=== PATIENT | female | born 1950 | race Caucasian/White ===

== ENCOUNTER 2018-02-26 14:53 | Emergency (ER) | payer MEDICARE ==
--- NOTE | 2018-02-26 16:48 | XRAY Report ---
Reason: midfoot pain Procedure Date: 02/26/2018 Accession Number: [id number] / [id number] Procedure: XR - Foot 3 View LT CPT Code: FULL RESULT: EXAM: LEFT FOOT RADIOGRAPHY EXAM DATE: 02/26/2018 03:48 PM. CLINICAL HISTORY: Midfoot pain. COMPARISON: None. TECHNIQUE: 3 views. FINDINGS: Bones: Lucency is noted in the distal dorsal talus best seen on the lateral view. On the oblique and AP images, there is a lucency through the distal lateral aspect of the calcaneus. No fracture involving the Lisfranc joint. Joints: Normal. No subluxations. Soft Tissues: Mild lateral left foot and ankle swelling. IMPRESSION: 1. Possible, mildly displaced fracture of the distal lateral calcaneus. 2. Question of lucency in the distal dorsal talus best seen on the lateral view. Confirmation with CT can be performed as necessary. 3. No definite Lisfranc fracture. No malalignment. 3. Mild lateral left foot and ankle swelling. RADIA
--- NOTE | 2018-02-26 17:19 | ED Physician Documentation ---
History of Present Illness - Stated complaint Stated Complaint: L FOOT INJ - Chief complaint Chief Complaint: Ext Problem - Additonal information Additional information: hx from pt slipped on boat deck foot twisted under her cannot bear weight no other injury Review of Systems Musculoskeletal: reports: Pain with weight bearing PD PAST MEDICAL HISTORY - Present Medications Home Medications: Ambulatory Orders Medication Instructions Recorded Confirmed Atenolol 1 02/26/18 Escitalopram [Lexapro] 1 02/26/18 Losartan [Cozaar] 1 02/26/18 clonazePAM [Clonazepam] 1 02/26/18 - Allergies Allergies/Adverse Reactions: Allergies Allergy/AdvReac Type Severity Reaction Status Date / Time No Known Drug Allergies Allergy Verified 02/26/18 15:05 PD ED PE NORMAL - Vitals Vital signs reviewed: Yes - General General: Alert and oriented X 3 - Extremities Extremities: Other (L foot: no ankle or hund foot pain, pain to mid foot neard base 1st and 2nd MT, MSV intact, STS) Results - Vitals Vitals: Vital Signs - 24 hr 02/26/18 02/26/18 15:03 17:57 Temperature 36 C L 36.1 C L Heart Rate 73 66 Respiratory 20 15 Rate Blood Pressure 184/88 H 153/71 H O2 Saturation 100 99 Oxygen O2 Source Room air - Rads (name of study) L foot Radiology: See rad report (no lisfranc, possible fx distal lateral calcaneus, possible lucency distal dorsal talus, STS) Procedures - Splint (location) LLE Splint applied by: Tech Type of splint: Fiberglass, Short leg, Posterior, Stirrup Other: Patient tolerated well, No complications, Neurovascular intact, Crutches provided Departure - Departure Disposition: Home, Self Care Clinical Impression: Foot fracture, left Qualifiers: Encounter type: initial encounter Fracture type: closed Qualified Code(s): S92.902A - Unspecified fracture of left foot, initial encounter for closed fracture Condition: Good Instructions: ED Crutch Walking, ED Fx Foot, ED Splint Care Fiberglass Follow-Up: Prashanth Berkowitz MD [Primary Care Provider] - [facility] [Provider Group] Comments: There a fracture of the calcaneus and talus bones. You will need to follwo up with orthopedics. You may need further imaging such as CT or MRI. In the meantime, wear the splitn at all times, use the crutches (no weight bearing) Motrin and tylenol for the pain Ice and elevation to decrease the pain and swelling
[2018-02-26] MEDS ORDERED: oxyCODONE 5 MG TABLET PO STA (17:23)
[2018-02-26 17:57] VITALS: BP 153/71
== END 2018-02-26 18:00 | disposition home or self-care (01) ==
LOC: ED 14:53
DX: S92.902A Unspecified fracture of left foot, initial encounter for closed fracture (principal); X50.1XXA Overexertion from prolonged static or awkward postures, initial encounter; W01.0XXA Fall on same level from slipping, tripping and stumbling without subsequent striking against object, initial encounter; Y92.814 Boat as the place of occurrence of the external cause
CPT/HCPCS: 29515; 73630; 99282; 99283; A9270